=== PATIENT | male | born 1955 | race Caucasian/White ===

== ENCOUNTER 2022-11-11 21:24 | Emergency (ER) | payer MEDICARE ==
[~2022-11-11] VITALS: Ht 175.3 cm; Wt 81.6 kg
[2022-11-11 21:42] VITALS: TEMP 98.7
[2022-11-11] MEDS ORDERED: DILTIAZEM HCL 25 MG IV IV ONE (22:00)
[2022-11-11] MEDS ORDERED: DILTIAZEM HCL 25 MG IV ONE (22:02)
[2022-11-11 22:15] LABS: BASOPHILS # (AUTO) 0.1 K/uL (0.0-0.2); BASOPHILS % (AUTO) 0.9 % (0.0-2.0); EOSINOPHILS # (AUTO) 0.3 K/uL (0.0-0.7); EOSINOPHILS % (AUTO) 3.5 % (0.0-6.0); HEMATOCRIT 45 % (39-51); HEMOGLOBIN 15.3 g/dL (13.5-17.5); LYMPHOCYTES # (AUTO) 2.5 K/uL (0.8-4.8); LYMPHOCYTES % (AUTO) 28.5 % (20.0-44.0); MEAN CORPUSCULAR HEMOGLOBIN 31 PG (26.0-33.0); MEAN CORPUSCULAR HGB CONC 34 g/dl (31.0-36.0); MEAN CORPUSCULAR VOLUME 92 fL (80-96); MONOCYTES # (AUTO) 0.8 K/uL (0.1-1.30); MONOCYTES % (AUTO) 9.5 % (2.0-12.0); NEUTROPHILS # (AUTO) 5.1 K/uL (1.8-8.9); NEUTROPHILS % (AUTO) 57.6 % (43.0-81.0); PLATELET COUNT (AUTO) 214 K/uL (150-450); RED BLOOD CELL COUNT(AUTO) 4.92 MIL/uL (4.5-6.0); WHITE BLOOD COUNT (AUTO) 8.9 K/uL (4.3-11.0)
[2022-11-11 22:20] VITALS: O2SAT 94
[2022-11-11 22:34] LABS: INR 0.99 (0.91-1.10); PROTHROMBIN TIME 10.4 SECS (9.2-11.1)
[2022-11-11 22:38] LABS: CALCIUM, SERUM 9.2 mg/dL (8.5-10.1); CARBON DIOXIDE 24 mmol/L (21-32); CHLORIDE 97 mmol/L (98-107); CREATININE 1.1 mg/dL (0.6-1.3); GLUCOSE 74 mg/dL (74-106); POTASSIUM 3.8 mmol/L (3.5-5.1); SODIUM SERUM 134 mmol/L (136-145); UREA NITROGEN, BLOOD 10 mg/dL (7-18)
[2022-11-11 22:51] LABS: ALANINE AMINOTRANSFERASE 30 U/L (12-78); ALBUMIN 4.3 g/dL (3.4-5.0); ALKALINE PHOSPHATASE 97 U/L (46-116); ASPARTATE AMINOTRANSFERASE 25 U/L (15-37); BILIRUBIN,DIRECT 0.1 mg/dL (0.0-0.2); BILIRUBIN,TOTAL 0.4 mg/dL (0.2-1.0); NT-PRO BNP 98 pg/mL (0-125); TOTAL PROTEIN, SERUM 7.2 g/dL (6.4-8.2)
[2022-11-11] MEDS ORDERED: DILTIAZEM HCL 30 MG TABLET PO ONE (23:30)
[2022-11-11] MEDS ORDERED: DILTIAZEM HCL 30 MG TABLET ONE (23:35)
[2022-11-12] MEDS ORDERED: DILTIAZEM HCL 25 MG IV ONE (00:22)
[2022-11-12 00:29] VITALS: BP 94/76
[2022-11-12] MEDS ORDERED: DILTIAZEM HCL 25 MG IV IV ONE (00:30)
[2022-11-12] MEDS ORDERED: DILT30TA14 PO (00:37)
== END 2022-11-12 01:18 | disposition left against medical advice (07) ==
LOC: ER 21:51
DX: I48.20 Chronic atrial fibrillation, unspecified (principal); I10 Essential (primary) hypertension; F41.9 Anxiety disorder, unspecified; Z98.890 Other specified postprocedural states
CPT/HCPCS: 99285; 96374; 71045; 93005; 85025; 80048; 80076; 36415 ×2; 84443; 84484 ×2; 85730; 83880; 96376; J3490 ×2